=== PATIENT | female | born 1995 | race Two or more races ===

== ENCOUNTER 2020-06-03 17:07 | Inpatient (IN) | payer MEDICAID ==
[~2020-06-03] VITALS: Ht 154.9 cm; Wt 81.2 kg
[2020-06-03] MEDS ORDERED: MAGNESIUM HYDROXIDE SUSPENSION 30 ML UDCUP PO PRN (21:30)
[2020-06-03] MEDS ORDERED: TUBERCULIN, PURIFIED PROTEIN DERIVATIVE 5 TU/0.1 ML SYRINGE ID ONE (21:30)
[2020-06-03] MEDS ORDERED: GuaiFENesin/D-METHORPHAN [SUGAR-FREE] 200-20MG/10 ML SYRUP UDCUP PO PRN (21:30)
[2020-06-03] MEDS ORDERED: MAG HYDROX/AL HYDROX/SIMETH ES 30 ML SUSPENSION UDCUP PO PRN (21:30)
[2020-06-03] MEDS ORDERED: ACETAMINOPHEN 325 MG TABLET PO PRN (21:30)
[2020-06-03] MEDS ORDERED: HydrOXYzine PAMOATE 50 MG CAPSULE PO PRN (21:30)
[2020-06-03] MEDS ORDERED: PROMETHAZINE HCL 25 MG TABLET PO PRN (21:30)
[2020-06-03] MEDS ORDERED: LOPERAMIDE HCL 2 MG CAPSULE PO PRN (21:30)
[2020-06-03 22:14] VITALS: BP 141/84
[2020-06-03] MEDS: ZOLPIDEM TARTRATE 10 MG TABLET PO PRN (22:30)
[2020-06-04 00:49] VITALS: BP 128/76
[2020-06-04 07:54] LABS: BASOPHILS % (AUTO) 0.8 % (0.0-2.0); EOSINOPHILS % (AUTO) 2.4 % (1.0-6.0); LYMPHOCYTES # (AUTO) 2.5 K/uL (1.0-4.8); LYMPHOCYTES % (AUTO) 38.3 % (22.0-44.0); MEAN CORPUSCULAR HEMOGLOBIN 29.4 pg (26.0-34.0); MEAN CORPUSCULAR HGB CONC 34.2 G/dL (31.0-37.0); MEAN CORPUSCULAR VOLUME 86 fL (80-100); MONOCYTES # (AUTO) 0.6 K/uL (0.1-1.0); MONOCYTES % (AUTO) 8.6 % (2.0-9.0); NEUTROPHILS # (AUTO) 3.2 K/uL (1.8-7.7); NEUTROPHILS % (AUTO) 49.9 % (40.0-70.0); PLATELET COUNT (AUTO) 218 K/uL (150-450); RED BLOOD CELL COUNT(AUTO) 4.76 MIL/uL (4.00-5.20); RED CELL DISTRIBUTION WIDTH 12.8 % (11.5-14.5)
[2020-06-04 08:11] LABS: HEMOGLOBIN A1C 5.1 % (3.8-5.6)
[2020-06-04 08:29] LABS: ALANINE AMINOTRANSFERASE 96 U/L (12-78); ALBUMIN 3.3 g/dL (3.4-5.0); ALKALINE PHOSPHATASE 58 U/L (46-116); ANION GAP 6 mmol/L (8-16); ASPARTATE AMINOTRANSFERASE 40 U/L (15-37); BILIRUBIN,TOTAL 1.2 mg/dL (0.1-1.0); CALCIUM, TOTAL 8.6 mg/dL (8.8-10.5); CARBON DIOXIDE 29 mmol/L (22-29); CHLORIDE 105 mmol/L (98-107); CHOL/HDL RATIO 5.6 (3.9-5.7); CHOLESTEROL 141 mg/dL (131-200); CREATININE 0.69 mg/dL (0.60-1.30); FREE T4 (FREE THYROXINE) 1.24 ng/dL (0.76-1.46); GLOMERULAR FILTR. RATE CALC > 60 mL/min (>60); GLUCOSE,RANDOM 102 mg/dL (70-110); HCG,QUANTITATIVE 1 mIU/mL (0-6); HDL CHOLESTEROL 25 mg/dL (40-60); LDL CHOL (CALC.) 93 mg/dL (0-130); POTASSIUM 3.7 mmol/L (3.5-5.1); SODIUM SERUM 140 mmol/L (136-145); THYROID STIMULATING HORMONE 0.91 uIU/mL (0.36-3.74); TOTAL PROTEIN, SERUM 6.4 g/dL (6.4-8.2); TRIGLYCERIDES 114 mg/dL (15-150); UREA NITROGEN, BLOOD 9 mg/dL (7-18)
[2020-06-04 08:30] VITALS: BP 115/59
[2020-06-04] MEDS: FOLIC ACID 1 MG TABLET PO SCH (09:00)
[2020-06-04] MEDS: THIAMINE 100 MG TABLET PO SCH ×2 (09:00→17:23)
[2020-06-04] MEDS: NALTREXONE HCL 50 MG TABLET PO SCH (09:00)
[2020-06-04] MEDS: MULTIVITAMINS WITH MINERALS, THERAPEUTIC TABLET PO SCH (09:00)
[2020-06-04] MEDS: LORazepam 2 MG TABLET PO PRN (09:22)
[2020-06-04] MEDS: FLUoxetine HCL 20 MG CAPSULE PO SCH (09:24)
[2020-06-04 16:04] VITALS: BP 105/60
[2020-06-04] MEDS ORDERED: OLANZapine 5 MG RAPDIS TABLET PO SCH (21:00)
[2020-06-05 05:23] VITALS: BP 116/61
[2020-06-05 08:10] VITALS: BP 103/62
[2020-06-05] MEDS: NALTREXONE HCL 50 MG TABLET PO SCH (09:00)
[2020-06-05] MEDS: MULTIVITAMINS WITH MINERALS, THERAPEUTIC TABLET PO SCH (09:00)
[2020-06-05] MEDS: FOLIC ACID 1 MG TABLET PO SCH (09:00)
[2020-06-05] MEDS: THIAMINE 100 MG TABLET PO SCH ×2 (09:00→17:00)
[2020-06-05] MEDS: FLUoxetine HCL 20 MG CAPSULE PO SCH (09:27)
[2020-06-05 16:07] VITALS: BP 106/70
[2020-06-05] MEDS: OLANZapine 10 MG RAPDIS TABLET PO SCH ×2 (20:15→21:32)
[2020-06-06 00:53] VITALS: BP 102/72
[2020-06-06 08:10] VITALS: BP 105/61
[2020-06-06 08:24] LABS: AMPHET/METH SCREEN,URINE NEGATIVE (NEGATIVE); APPEARANCE,URINE TURBID (CLEAR); BARBITURATE SCREEN, URINE NEGATIVE (NEGATIVE); BENZODIAZEPINES SCREEN,URINE NEGATIVE (NEGATIVE); BILIRUBIN,URINE NEGATIVE (NEGATIVE); CANNABINOID SCREEN,URINE POSITIVE (NEGATIVE); COCAINE SCREEN,URINE NEGATIVE (NEGATIVE); GLUCOSE, URINE (UA) NEGATIVE (NEGATIVE); KETONES,URINE NEGATIVE (NEGATIVE); LEUKOCYTE ESTERASE ,URINE SMALL (NEGATIVE); METHADONE SCREEN, URINE NEGATIVE (NEGATIVE); NITRATE,URINE NEGATIVE (NEGATIVE); OPIATE SCREEN,URINE NEGATIVE (NEGATIVE); PROTEIN,URINE NEGATIVE (NEGATIVE); UROBILINOGEN,URINE 0.2 mg/dL (<=1.0)
[2020-06-06] MEDS: FLUoxetine HCL 20 MG CAPSULE PO SCH (08:27)
[2020-06-06 08:31] LABS: PHENCYCLIDINE SCREEN,URINE NEGATIVE (NEGATIVE)
[2020-06-06] MEDS: MULTIVITAMINS WITH MINERALS, THERAPEUTIC TABLET PO SCH (08:31)
[2020-06-06] MEDS: NALTREXONE HCL 50 MG TABLET PO SCH (08:31)
[2020-06-06] MEDS: FOLIC ACID 1 MG TABLET PO SCH (08:31)
[2020-06-06] MEDS: THIAMINE 100 MG TABLET PO SCH ×2 (08:31→15:55)
[2020-06-06 08:38] LABS: BACTERIA,URINE Many /HPF (None Seen); OCCULT BLOOD,URINE SMALL (NEGATIVE)
[2020-06-06 08:39] LABS: AMORPHOUS SEDIMENT,UR Moderate /LPF (None Seen); CALCIUM OXALATE CRYSTALS,UR Moderate /LPF (None Seen); SQUAMOUS EPITHELIAL CELL,UR Many /LPF (None Seen)
[2020-06-06 16:28] VITALS: BP 100/54
[2020-06-06] MEDS: LORazepam 2 MG TABLET PO PRN (18:39)
[2020-06-06] MEDS: OLANZapine 10 MG RAPDIS TABLET PO SCH (20:00)
[2020-06-07 05:40] VITALS: BP 110/60
[2020-06-07 08:14] VITALS: BP 119/74
[2020-06-07] MEDS: FOLIC ACID 1 MG TABLET PO SCH (09:03)
[2020-06-07] MEDS: MULTIVITAMINS WITH MINERALS, THERAPEUTIC TABLET PO SCH (09:04)
[2020-06-07] MEDS: THIAMINE 100 MG TABLET PO SCH ×2 (09:04→16:03)
[2020-06-07] MEDS: NALTREXONE HCL 50 MG TABLET PO SCH (09:04)
[2020-06-07] MEDS: FLUoxetine HCL 20 MG CAPSULE PO SCH (09:04)
[2020-06-07] MEDS: LORazepam 2 MG TABLET PO PRN ×2 (09:09→16:04)
[2020-06-07 16:15] VITALS: BP 111/71
[2020-06-07] MEDS: OLANZapine 10 MG RAPDIS TABLET PO SCH (20:37)
[2020-06-07] MEDS: ZOLPIDEM TARTRATE 10 MG TABLET PO PRN (21:12)
[2020-06-08 06:21] VITALS: BP 103/65
[2020-06-08] MEDS: THIAMINE 100 MG TABLET PO SCH ×2 (08:15→16:39)
[2020-06-08] MEDS: MULTIVITAMINS WITH MINERALS, THERAPEUTIC TABLET PO SCH (08:15)
[2020-06-08] MEDS: FOLIC ACID 1 MG TABLET PO SCH (08:15)
[2020-06-08] MEDS: FLUoxetine HCL 20 MG CAPSULE PO SCH (08:15)
[2020-06-08] MEDS: NALTREXONE HCL 50 MG TABLET PO SCH (08:15)
[2020-06-08 08:31] VITALS: BP 122/79
[2020-06-08] MEDS: OLANZapine 5 MG RAPDIS TABLET PO PRN (16:39)
[2020-06-08] MEDS: LORazepam 2 MG TABLET PO PRN (18:44)
[2020-06-08 19:14] VITALS: BP 128/91
[2020-06-08] MEDS: OLANZapine 10 MG RAPDIS TABLET PO SCH (20:07)
[2020-06-08] MEDS: ZOLPIDEM TARTRATE 10 MG TABLET PO PRN (20:07)
[2020-06-09 01:17] VITALS: BP 122/84
[2020-06-09 08:17] VITALS: BP 111/79
[2020-06-09] MEDS: FLUoxetine HCL 20 MG CAPSULE PO SCH (08:17)
[2020-06-09] MEDS: NALTREXONE HCL 50 MG TABLET PO SCH (08:17)
[2020-06-09] MEDS: MULTIVITAMINS WITH MINERALS, THERAPEUTIC TABLET PO SCH (08:17)
[2020-06-09] MEDS: THIAMINE 100 MG TABLET PO SCH ×2 (08:17→16:07)
[2020-06-09] MEDS: FOLIC ACID 1 MG TABLET PO SCH (08:17)
[2020-06-09] MEDS: LORazepam 2 MG TABLET PO PRN ×2 (13:01→17:13)
[2020-06-09 16:02] VITALS: BP 123/74
[2020-06-09] MEDS: OLANZapine 5 MG RAPDIS TABLET PO PRN (18:07)
[2020-06-09] MEDS: ZOLPIDEM TARTRATE 10 MG TABLET PO PRN (20:33)
[2020-06-09] MEDS: OLANZapine 10 MG RAPDIS TABLET PO SCH (20:33)
[2020-06-10 02:17] VITALS: BP 124/71
[2020-06-10 08:11] VITALS: BP 116/71
[2020-06-10 08:18] LABS: ALBUMIN 3.6 g/dL (3.4-5.0); BILIRUBIN,DIRECT 0.1 mg/dL (0.00-0.20); BILIRUBIN,TOTAL 0.9 mg/dL (0.1-1.0)
[2020-06-10] MEDS: THIAMINE 100 MG TABLET PO SCH ×2 (08:34→17:01)
[2020-06-10] MEDS: LORazepam 2 MG TABLET PO PRN ×2 (08:34→17:52)
[2020-06-10] MEDS: FLUoxetine HCL 20 MG CAPSULE PO SCH (08:34)
[2020-06-10] MEDS: MULTIVITAMINS WITH MINERALS, THERAPEUTIC TABLET PO SCH (08:35)
[2020-06-10] MEDS: NALTREXONE HCL 50 MG TABLET PO SCH (08:35)
[2020-06-10] MEDS: FOLIC ACID 1 MG TABLET PO SCH (08:35)
[2020-06-10] MEDS: OLANZapine 5 MG RAPDIS TABLET PO PRN (09:13)
[2020-06-10 16:07] VITALS: BP 112/79
[2020-06-10] MEDS: OLANZapine 10 MG RAPDIS TABLET PO SCH (20:04)
[2020-06-10] MEDS: ZOLPIDEM TARTRATE 10 MG TABLET PO PRN (20:06)
[2020-06-11 03:46] VITALS: BP 110/78
[2020-06-11] MEDS: ATOMOXETINE HCL 40 MG CAPSULE PO SCH (08:03)
[2020-06-11] MEDS: THIAMINE 100 MG TABLET PO SCH ×2 (08:03→16:48)
[2020-06-11] MEDS: FOLIC ACID 1 MG TABLET PO SCH (08:03)
[2020-06-11] MEDS: FLUoxetine HCL 20 MG CAPSULE PO SCH (08:03)
[2020-06-11] MEDS: MULTIVITAMINS WITH MINERALS, THERAPEUTIC TABLET PO SCH (08:03)
[2020-06-11] MEDS: NALTREXONE HCL 50 MG TABLET PO SCH (08:03)
[2020-06-11] MEDS: LORazepam 2 MG TABLET PO PRN ×3 (08:03→16:56)
[2020-06-11 08:08] VITALS: BP 140/83
[2020-06-11 16:10] VITALS: BP 120/66
[2020-06-11] MEDS ORDERED: NICOTINE POLACRILEX 2 MG LOZENGE PO PRN (17:45)
[2020-06-11] MEDS: OLANZapine 10 MG RAPDIS TABLET PO SCH (20:19)
[2020-06-11] MEDS: ZOLPIDEM TARTRATE 10 MG TABLET PO PRN (20:19)
[2020-06-12 06:35] VITALS: BP 109/74
[2020-06-12] MEDS ORDERED: ATOM40CA9 PO (07:51)
[2020-06-12] MEDS ORDERED: NALT50TA PO (07:51)
[2020-06-12] MEDS ORDERED: OLAN10TA22 PO (07:51)
[2020-06-12] MEDS ORDERED: FLUO-191 PO (07:51)
[2020-06-12] MEDS: NALTREXONE HCL 50 MG TABLET PO SCH (08:08)
[2020-06-12] MEDS: FLUoxetine HCL 20 MG CAPSULE PO SCH (08:08)
[2020-06-12] MEDS: FOLIC ACID 1 MG TABLET PO SCH (08:08)
[2020-06-12] MEDS: ATOMOXETINE HCL 40 MG CAPSULE PO SCH (08:08)
[2020-06-12] MEDS: THIAMINE 100 MG TABLET PO SCH (08:08)
[2020-06-12] MEDS: MULTIVITAMINS WITH MINERALS, THERAPEUTIC TABLET PO SCH (08:08)
[2020-06-12] MEDS: LORazepam 2 MG TABLET PO PRN (08:13)
[2020-06-12 08:20] VITALS: BP 117/71
[2020-06-13] MEDS ORDERED: FLUO-191 PO (09:07)
[2020-06-13] MEDS ORDERED: OLAN10TA3 PO (09:07)
[2020-06-13] MEDS ORDERED: NALT50TA6 PO (09:07)
== END 2020-06-12 13:10 | disposition home or self-care (01) | DRG 750 ==
LOC: B3A 21:15
PROVIDERS: ADMIT Psychiatry & Neurology Psychiatry; ATTEND Psychiatry & Neurology Psychiatry
DX: F25.9 Schizoaffective disorder, unspecified (principal); F15.90 Other stimulant use, unspecified, uncomplicated; F12.10 Cannabis abuse, uncomplicated; F17.210 Nicotine dependence, cigarettes, uncomplicated; G47.00 Insomnia, unspecified; Z59.0 Homelessness; Z91.19 Patient's noncompliance with other medical treatment and regimen
CPT/HCPCS: 80074; 80307; 83036; 84439; 84443; 86592; 87081; 87086

== ENCOUNTER 2020-06-12 22:33 | Inpatient (IN) | payer MEDICAID ==
[~2020-06-12] VITALS: Ht 154.9 cm; Wt 81.6 kg
[~2020-06-12 22:33] MED LIST: FLUO-191 PO; NALT50TA PO; OLAN10TA22 PO
[2020-06-13] MEDS ORDERED: OLANZapine 5 MG RAPDIS TABLET PO PRN ×2 (01:45→11:45)
[2020-06-13 02:30] VITALS: BP 123/80
[2020-06-13] MEDS: LORazepam 2 MG TABLET PO PRN ×4 (03:26→20:08)
[2020-06-13 08:30] VITALS: BP 106/60
[2020-06-13 08:42] LABS: CHOL/HDL RATIO 6.4 (3.9-5.7); CHOLESTEROL 167 mg/dL (131-200); HDL CHOLESTEROL 26 mg/dL (40-60); LDL CHOL (CALC.) 87 mg/dL (0-130); TRIGLYCERIDES 272 mg/dL (15-150)
[2020-06-13 09:07] LABS: BILIRUBIN,URINE NEGATIVE (NEGATIVE); GLUCOSE, URINE (UA) NEGATIVE (NEGATIVE); KETONES,URINE NEGATIVE (NEGATIVE); LEUKOCYTE ESTERASE ,URINE NEGATIVE (NEGATIVE); NITRATE,URINE NEGATIVE (NEGATIVE); OCCULT BLOOD,URINE LARGE (NEGATIVE); PROTEIN,URINE NEGATIVE (NEGATIVE); UROBILINOGEN,URINE 0.2 mg/dL (<=1.0)
[2020-06-13] MEDS ORDERED: OLAN10TA3 PO (09:07)
[2020-06-13] MEDS ORDERED: NALT50TA6 PO (09:07)
[2020-06-13] MEDS ORDERED: FLUO-191 PO (09:07)
[2020-06-13 09:09] LABS: APPEARANCE,URINE SLIGHTLY CLOUDY (CLEAR)
[2020-06-13 09:10] LABS: ALANINE AMINOTRANSFERASE 75 U/L (12-78); ALBUMIN 3.6 g/dL (3.4-5.0); ALKALINE PHOSPHATASE 76 U/L (46-116); ANION GAP 7 mmol/L (8-16); ASPARTATE AMINOTRANSFERASE 34 U/L (15-37); BILIRUBIN,TOTAL 0.8 mg/dL (0.1-1.0); CALCIUM, TOTAL 8.9 mg/dL (8.8-10.5); CARBON DIOXIDE 28 mmol/L (22-29); CHLORIDE 105 mmol/L (98-107); CREATININE 0.72 mg/dL (0.60-1.30); FREE T4 (FREE THYROXINE) 1.09 ng/dL (0.76-1.46); GLOMERULAR FILTR. RATE CALC > 60 mL/min (>60); GLUCOSE,RANDOM 76 mg/dL (70-110); HCG,QUANTITATIVE < 1 mIU/mL (0-6); POTASSIUM 3.8 mmol/L (3.5-5.1); SODIUM SERUM 140 mmol/L (136-145); THYROID STIMULATING HORMONE 1.66 uIU/mL (0.36-3.74); TOTAL PROTEIN, SERUM 6.6 g/dL (6.4-8.2); UREA NITROGEN, BLOOD 12 mg/dL (7-18)
[2020-06-13 09:18] LABS: AMPHET/METH SCREEN,URINE NEGATIVE (NEGATIVE); BARBITURATE SCREEN, URINE NEGATIVE (NEGATIVE); BENZODIAZEPINES SCREEN,URINE NEGATIVE (NEGATIVE); CANNABINOID SCREEN,URINE POSITIVE (NEGATIVE); COCAINE SCREEN,URINE NEGATIVE (NEGATIVE); METHADONE SCREEN, URINE NEGATIVE (NEGATIVE); OPIATE SCREEN,URINE NEGATIVE (NEGATIVE); PHENCYCLIDINE SCREEN,URINE NEGATIVE (NEGATIVE)
[2020-06-13 09:26] LABS: WBC,URINE None Seen /HPF (0-5)
[2020-06-13 09:27] LABS: BACTERIA,URINE Few /HPF (None Seen); CALCIUM OXALATE CRYSTALS,UR Few /LPF (None Seen); SQUAMOUS EPITHELIAL CELL,UR Many /LPF (None Seen)
[2020-06-13] MEDS ORDERED: MAGNESIUM HYDROXIDE SUSPENSION 30 ML UDCUP PO PRN (11:45)
[2020-06-13] MEDS ORDERED: PROMETHAZINE HCL 25 MG TABLET PO PRN (11:45)
[2020-06-13] MEDS ORDERED: MAG HYDROX/AL HYDROX/SIMETH ES 30 ML SUSPENSION UDCUP PO PRN (11:45)
[2020-06-13] MEDS ORDERED: LOPERAMIDE HCL 2 MG CAPSULE PO PRN (11:45)
[2020-06-13] MEDS ORDERED: GuaiFENesin/D-METHORPHAN [SUGAR-FREE] 200-20MG/10 ML SYRUP UDCUP PO PRN (11:45)
[2020-06-13] MEDS ORDERED: ACETAMINOPHEN 325 MG TABLET PO PRN (11:45)
[2020-06-13] MEDS ORDERED: HydrOXYzine PAMOATE 50 MG CAPSULE PO PRN (11:45)
[2020-06-13 16:04] VITALS: BP 118/71
[2020-06-13] MEDS: THIAMINE 100 MG TABLET PO SCH (16:11)
[2020-06-13] MEDS: OLANZapine 10 MG RAPDIS TABLET PO SCH (20:08)
[2020-06-13] MEDS: ZOLPIDEM TARTRATE 10 MG TABLET PO PRN (20:08)
[2020-06-14 00:43] VITALS: BP 110/72
[2020-06-14] MEDS: FLUoxetine HCL 20 MG CAPSULE PO SCH (08:08)
[2020-06-14] MEDS: THIAMINE 100 MG TABLET PO SCH ×2 (08:08→16:30)
[2020-06-14] MEDS: NALTREXONE HCL 50 MG TABLET PO SCH (08:08)
[2020-06-14] MEDS: MULTIVITAMINS WITH MINERALS, THERAPEUTIC TABLET PO SCH (08:08)
[2020-06-14] MEDS: FOLIC ACID 1 MG TABLET PO SCH (08:08)
[2020-06-14] MEDS ORDERED: BuPROPion HCL XL 150 MG ER TABLET PO SCH (09:00)
[2020-06-14 11:09] VITALS: BP 127/64
[2020-06-14] MEDS: LORazepam 2 MG TABLET PO PRN ×2 (12:18→17:00)
[2020-06-14 16:14] VITALS: BP 108/67
[2020-06-14] MEDS: NICOTINE POLACRILEX 2 MG LOZENGE PO PRN (19:30)
[2020-06-14] MEDS: OLANZapine 10 MG RAPDIS TABLET PO SCH (20:13)
[2020-06-14] MEDS: MIRTAZAPINE 15 MG TABLET PO SCH (20:13)
[2020-06-14] MEDS: ZOLPIDEM TARTRATE 10 MG TABLET PO PRN (20:13)
[2020-06-15 00:06] VITALS: BP 112/62
[2020-06-15 08:07] VITALS: BP 115/74
[2020-06-15] MEDS: THIAMINE 100 MG TABLET PO SCH ×2 (09:48→16:30)
[2020-06-15] MEDS: NALTREXONE HCL 50 MG TABLET PO SCH (09:48)
[2020-06-15] MEDS: FOLIC ACID 1 MG TABLET PO SCH (09:48)
[2020-06-15] MEDS: FLUoxetine HCL 20 MG CAPSULE PO SCH (09:48)
[2020-06-15] MEDS: MULTIVITAMINS WITH MINERALS, THERAPEUTIC TABLET PO SCH (09:48)
[2020-06-15] MEDS: BuPROPion HCL XL 150 MG ER TABLET PO SCH (09:48)
[2020-06-15] MEDS: LORazepam 2 MG TABLET PO PRN ×2 (12:18→16:30)
[2020-06-15] MEDS: NICOTINE POLACRILEX 2 MG LOZENGE PO PRN ×2 (12:36→15:40)
[2020-06-15 16:24] VITALS: BP 110/69
[2020-06-15] MEDS: OLANZapine 10 MG RAPDIS TABLET PO SCH (20:12)
[2020-06-15] MEDS: MIRTAZAPINE 15 MG TABLET PO SCH (20:12)
[2020-06-16 05:07] VITALS: BP 104/68
[2020-06-16] MEDS: NALTREXONE HCL 50 MG TABLET PO SCH (08:21)
[2020-06-16] MEDS: FOLIC ACID 1 MG TABLET PO SCH (08:21)
[2020-06-16] MEDS: THIAMINE 100 MG TABLET PO SCH ×2 (08:21→16:10)
[2020-06-16] MEDS: BuPROPion HCL XL 150 MG ER TABLET PO SCH (08:21)
[2020-06-16] MEDS: MULTIVITAMINS WITH MINERALS, THERAPEUTIC TABLET PO SCH (08:21)
[2020-06-16] MEDS: FLUoxetine HCL 20 MG CAPSULE PO SCH (08:22)
[2020-06-16] MEDS: NICOTINE POLACRILEX 2 MG LOZENGE PO PRN ×2 (08:23→17:14)
[2020-06-16 08:34] VITALS: BP 121/72
[2020-06-16] MEDS: LORazepam 2 MG TABLET PO PRN ×2 (10:11→19:02)
[2020-06-16 16:12] VITALS: BP 114/76
[2020-06-16] MEDS: OLANZapine 10 MG RAPDIS TABLET PO SCH (20:07)
[2020-06-16] MEDS: MIRTAZAPINE 15 MG TABLET PO SCH (20:08)
[2020-06-17 04:10] VITALS: BP 110/68
[2020-06-17 08:22] VITALS: BP 93/62
[2020-06-17] MEDS: FOLIC ACID 1 MG TABLET PO SCH (08:43)
[2020-06-17] MEDS: BuPROPion HCL XL 150 MG ER TABLET PO SCH (08:43)
[2020-06-17] MEDS: FLUoxetine HCL 20 MG CAPSULE PO SCH (08:43)
[2020-06-17] MEDS: NALTREXONE HCL 50 MG TABLET PO SCH (08:43)
[2020-06-17] MEDS: MULTIVITAMINS WITH MINERALS, THERAPEUTIC TABLET PO SCH (08:43)
[2020-06-17] MEDS: THIAMINE 100 MG TABLET PO SCH ×2 (08:44→16:30)
[2020-06-17] MEDS: LORazepam 2 MG TABLET PO PRN ×2 (11:56→16:30)
[2020-06-17] MEDS: NICOTINE POLACRILEX 2 MG LOZENGE PO PRN ×2 (11:56→17:36)
[2020-06-17] MEDS ORDERED: PALIPERIDONE PALMITATE 234 MG/1.5 ML SYRINGE IM ONE (16:15)
[2020-06-17 16:25] VITALS: BP 113/63
[2020-06-17] MEDS: DIVALPROEX SODIUM 500 MG ER TABLET PO SCH (20:27)
[2020-06-17] MEDS: ZOLPIDEM TARTRATE 10 MG TABLET PO PRN (20:28)
[2020-06-17] MEDS: MIRTAZAPINE 15 MG TABLET PO SCH (20:28)
[2020-06-17] MEDS: OLANZapine 10 MG RAPDIS TABLET PO SCH (20:28)
[2020-06-18 06:21] VITALS: BP 123/73
[2020-06-18 08:21] VITALS: BP 11/66
[2020-06-18] MEDS: FLUoxetine HCL 20 MG CAPSULE PO SCH (08:25)
[2020-06-18] MEDS: MULTIVITAMINS WITH MINERALS, THERAPEUTIC TABLET PO SCH (08:25)
[2020-06-18] MEDS: THIAMINE 100 MG TABLET PO SCH ×2 (08:25→16:19)
[2020-06-18] MEDS: BuPROPion HCL XL 150 MG ER TABLET PO SCH (08:25)
[2020-06-18] MEDS: FOLIC ACID 1 MG TABLET PO SCH (08:25)
[2020-06-18] MEDS: NALTREXONE HCL 50 MG TABLET PO SCH (08:26)
[2020-06-18] MEDS: NICOTINE POLACRILEX 2 MG LOZENGE PO PRN ×2 (08:26→17:26)
[2020-06-18 16:02] VITALS: BP 142/74
[2020-06-18] MEDS: LORazepam 2 MG TABLET PO PRN (16:20)
[2020-06-18] MEDS: DIVALPROEX SODIUM 500 MG ER TABLET PO SCH (20:17)
[2020-06-18] MEDS: MIRTAZAPINE 15 MG TABLET PO SCH (20:18)
[2020-06-18] MEDS: OLANZapine 10 MG RAPDIS TABLET PO SCH (20:18)
[2020-06-18] MEDS: ZOLPIDEM TARTRATE 10 MG TABLET PO PRN (20:53)
[2020-06-19 01:08] VITALS: BP 104/62
[2020-06-19] MEDS: FOLIC ACID 1 MG TABLET PO SCH (08:23)
[2020-06-19] MEDS: MULTIVITAMINS WITH MINERALS, THERAPEUTIC TABLET PO SCH (08:23)
[2020-06-19] MEDS: BuPROPion HCL XL 150 MG ER TABLET PO SCH (08:23)
[2020-06-19] MEDS: NALTREXONE HCL 50 MG TABLET PO SCH (08:23)
[2020-06-19] MEDS: FLUoxetine HCL 20 MG CAPSULE PO SCH (08:23)
[2020-06-19] MEDS: THIAMINE 100 MG TABLET PO SCH (08:23)
[2020-06-19 08:32] VITALS: BP 112/78
[2020-06-19] MEDS ORDERED: DIVA-80 PO (09:45)
[2020-06-19] MEDS ORDERED: MIRT-89 PO (09:45)
[2020-06-19] MEDS ORDERED: OLAN10TA6 PO (09:45)
[2020-06-19] MEDS ORDERED: NALT50TA6 PO (09:45)
[2020-06-19] MEDS ORDERED: FLUO-191 PO (09:45)
[2020-06-19] MEDS ORDERED: BUPR-93 PO (09:45)
[2020-06-22] MEDS ORDERED: PALIPERIDONE PALMITATE 156 MG/ML SYRINGE IM ONE (09:00)
== END 2020-06-19 10:45 | disposition home or self-care (01) | DRG 750 ==
LOC: B2S 06-13 01:15
PROVIDERS: ADMIT Psychiatry & Neurology Psychiatry; ATTEND Psychiatry & Neurology Psychiatry
DX: F25.9 Schizoaffective disorder, unspecified (principal); F41.0 Panic disorder [episodic paroxysmal anxiety]; F41.8 Other specified anxiety disorders; Z79.899 Other long term (current) drug therapy; R45.851 Suicidal ideations; Z87.891 Personal history of nicotine dependence; F19.20 Other psychoactive substance dependence, uncomplicated
CPT/HCPCS: 80307; 83036; 84439; 84443; 87081; 87426

== ENCOUNTER 2020-11-21 15:04 | Emergency (ER) | payer MEDICAID ==
[~2020-11-21] VITALS: Ht 154.9 cm; Wt 84.5 kg
[~2020-11-21 15:04] MED LIST changes: +BUPR-93 PO; +DIVA-80 PO; +MIRT-89 PO; -NALT50TA PO; +NALT50TA6 PO; -OLAN10TA22 PO; +OLAN10TA6 PO
[2020-11-21 15:05] VITALS: BP 101/64
[2020-11-21 16:34] LABS: COVID AG,FIA SOURCE NASAL SWAB
== END 2020-11-21 16:23 | disposition home or self-care (01) ==
LOC: EMS 15:04
DX: Z20.822 Contact with and (suspected) exposure to COVID-19 (principal); F17.210 Nicotine dependence, cigarettes, uncomplicated; F12.90 Cannabis use, unspecified, uncomplicated; F20.9 Schizophrenia, unspecified
CPT/HCPCS: 87426; 99283; C9803

== ENCOUNTER 2020-11-21 18:40 | Inpatient (IN) | payer MEDICAID ==
[~2020-11-21] VITALS: Ht 154.9 cm; Wt 85.9 kg
[2020-11-21] MEDS ORDERED: GuaiFENesin/D-METHORPHAN [SUGAR-FREE] 200-20MG/10 ML SYRUP UDCUP PO PRN (20:00)
[2020-11-21] MEDS ORDERED: MAGNESIUM HYDROXIDE SUSPENSION 30 ML UDCUP PO PRN (20:00)
[2020-11-21] MEDS ORDERED: LOPERAMIDE HCL 2 MG CAPSULE PO PRN (20:00)
[2020-11-21] MEDS ORDERED: HydrOXYzine PAMOATE 50 MG CAPSULE PO PRN (20:00)
[2020-11-21] MEDS ORDERED: MAG HYDROX/AL HYDROX/SIMETH ES 30 ML SUSPENSION UDCUP PO PRN (20:00)
[2020-11-21] MEDS ORDERED: OLANZapine 5 MG RAPDIS TABLET PO PRN (20:00)
[2020-11-21] MEDS ORDERED: ZOLPIDEM TARTRATE 10 MG TABLET PO PRN (20:00)
[2020-11-21] MEDS ORDERED: ACETAMINOPHEN 325 MG TABLET PO PRN (20:00)
[2020-11-21] MEDS ORDERED: PROMETHAZINE HCL 25 MG TABLET PO PRN (20:00)
[2020-11-21 20:08] VITALS: BP 139/71
[2020-11-21] MEDS: DIVALPROEX SODIUM 500 MG ER TABLET PO SCH (20:37)
[2020-11-21] MEDS: MELATONIN 5 MG TABLET PO SCH (20:42)
[2020-11-21] MEDS: LORazepam 2 MG TABLET PO PRN (20:43)
[2020-11-21] MEDS ORDERED: INFLUENZA VIRUS VACCINE QVS 2020-21 (6MO+)/PF 60 MCG/0.5 ML SYRINGE IM ONE (20:45)
[2020-11-21] MEDS ORDERED: OLANZapine 5 MG RAPDIS TABLET PO SCH (21:00)
[2020-11-22 08:04] VITALS: BP 101/60
[2020-11-22] MEDS: OMEGA-3/DHA/EPA/FISH OIL 1,000 MG CAPSULE PO SCH (08:17)
[2020-11-22] MEDS: NALTREXONE HCL 50 MG TABLET PO SCH (08:17)
[2020-11-22] MEDS: THIAMINE 100 MG TABLET PO SCH ×2 (08:17→16:24)
[2020-11-22] MEDS: BuPROPion HCL XL 150 MG ER TABLET PO SCH (08:17)
[2020-11-22] MEDS: MULTIVITAMINS WITH MINERALS, THERAPEUTIC TABLET PO SCH (08:17)
[2020-11-22] MEDS: FOLIC ACID 1 MG TABLET PO SCH (08:17)
[2020-11-22] MEDS ORDERED: FLUoxetine HCL 20 MG CAPSULE PO SCH (09:00)
[2020-11-22] MEDS ORDERED: PALIPERIDONE PALMITATE 234 MG/1.5 ML SYRINGE IM ONE (13:45)
[2020-11-22 16:02] VITALS: BP 105/65
[2020-11-22] MEDS: MELATONIN 5 MG TABLET PO SCH (20:31)
[2020-11-22] MEDS: DIVALPROEX SODIUM 500 MG ER TABLET PO SCH (20:31)
[2020-11-22] MEDS: OLANZapine 10 MG RAPDIS TABLET PO SCH (20:34)
[2020-11-23 06:17] VITALS: BP 114/71
[2020-11-23 08:28] VITALS: BP 100/63
[2020-11-23] MEDS: OMEGA-3/DHA/EPA/FISH OIL 1,000 MG CAPSULE PO SCH (09:41)
[2020-11-23] MEDS: BuPROPion HCL XL 150 MG ER TABLET PO SCH (09:41)
[2020-11-23] MEDS: NALTREXONE HCL 50 MG TABLET PO SCH (09:41)
[2020-11-23] MEDS: THIAMINE 100 MG TABLET PO SCH ×2 (09:43→16:19)
[2020-11-23] MEDS: FLUoxetine HCL 20 MG CAPSULE PO SCH (09:43)
[2020-11-23] MEDS: MULTIVITAMINS WITH MINERALS, THERAPEUTIC TABLET PO SCH (09:44)
[2020-11-23] MEDS: FOLIC ACID 1 MG TABLET PO SCH (09:44)
[2020-11-23 16:05] VITALS: BP 114/70
[2020-11-23] MEDS: LORazepam 2 MG TABLET PO PRN (16:19)
[2020-11-23] MEDS: OLANZapine 10 MG RAPDIS TABLET PO SCH (20:20)
[2020-11-23] MEDS: MELATONIN 5 MG TABLET PO SCH (20:20)
[2020-11-23] MEDS: DIVALPROEX SODIUM 500 MG ER TABLET PO SCH (20:21)
[2020-11-24 03:35] VITALS: BP 102/61
[2020-11-24] MEDS: OMEGA-3/DHA/EPA/FISH OIL 1,000 MG CAPSULE PO SCH (08:07)
[2020-11-24] MEDS: FOLIC ACID 1 MG TABLET PO SCH (08:07)
[2020-11-24] MEDS: NALTREXONE HCL 50 MG TABLET PO SCH (08:07)
[2020-11-24] MEDS: BuPROPion HCL XL 150 MG ER TABLET PO SCH (08:07)
[2020-11-24] MEDS: FLUoxetine HCL 20 MG CAPSULE PO SCH (08:07)
[2020-11-24] MEDS: THIAMINE 100 MG TABLET PO SCH ×2 (08:07→16:28)
[2020-11-24] MEDS: MULTIVITAMINS WITH MINERALS, THERAPEUTIC TABLET PO SCH (08:07)
[2020-11-24 08:16] VITALS: BP 101/63
[2020-11-24 10:00] VITALS: BP 110/68
[2020-11-24] MEDS: LORazepam 2 MG TABLET PO PRN (10:00)
[2020-11-24 16:04] VITALS: BP 130/86
[2020-11-24] MEDS: MELATONIN 5 MG TABLET PO SCH (20:08)
[2020-11-24] MEDS: DIVALPROEX SODIUM 500 MG ER TABLET PO SCH (20:09)
[2020-11-24] MEDS: OLANZapine 10 MG RAPDIS TABLET PO SCH (20:09)
[2020-11-25 02:09] VITALS: BP 122/82
[2020-11-25 07:48] VITALS: BP 105/67
[2020-11-25] MEDS: FOLIC ACID 1 MG TABLET PO SCH (08:22)
[2020-11-25] MEDS: NALTREXONE HCL 50 MG TABLET PO SCH (08:22)
[2020-11-25] MEDS: OMEGA-3/DHA/EPA/FISH OIL 1,000 MG CAPSULE PO SCH (08:22)
[2020-11-25] MEDS: MULTIVITAMINS WITH MINERALS, THERAPEUTIC TABLET PO SCH (08:22)
[2020-11-25] MEDS: FLUoxetine HCL 20 MG CAPSULE PO SCH (08:22)
[2020-11-25] MEDS: THIAMINE 100 MG TABLET PO SCH ×2 (08:22→16:06)
[2020-11-25] MEDS: BuPROPion HCL XL 150 MG ER TABLET PO SCH (08:22)
[2020-11-25] MEDS: LORazepam 2 MG TABLET PO PRN (08:26)
[2020-11-25 08:38] VITALS: BP 105/67
[2020-11-25 16:31] VITALS: BP 129/83
[2020-11-25] MEDS: OLANZapine 10 MG RAPDIS TABLET PO SCH (20:22)
[2020-11-25] MEDS: MELATONIN 5 MG TABLET PO SCH (20:22)
[2020-11-25] MEDS: DIVALPROEX SODIUM 500 MG ER TABLET PO SCH (20:22)
[2020-11-26 00:46] VITALS: BP 120/80
[2020-11-26] MEDS: THIAMINE 100 MG TABLET PO SCH (08:11)
[2020-11-26] MEDS: MULTIVITAMINS WITH MINERALS, THERAPEUTIC TABLET PO SCH (08:11)
[2020-11-26] MEDS: NALTREXONE HCL 50 MG TABLET PO SCH (08:11)
[2020-11-26] MEDS: FLUoxetine HCL 20 MG CAPSULE PO SCH (08:11)
[2020-11-26] MEDS: FOLIC ACID 1 MG TABLET PO SCH (08:11)
[2020-11-26] MEDS: OMEGA-3/DHA/EPA/FISH OIL 1,000 MG CAPSULE PO SCH (08:11)
[2020-11-26] MEDS: LORazepam 2 MG TABLET PO PRN (08:12)
[2020-11-26 08:15] VITALS: BP 140/90
[2020-11-26] MEDS ORDERED: BuPROPion HCL XL 150 MG ER TABLET PO SCH (09:00)
[2020-11-26] MEDS ORDERED: PALIPERIDONE PALMITATE 156 MG/ML SYRINGE IM ONE (09:00)
[2020-11-26 09:28] LABS: BASOPHILS % (AUTO) 0.8 % (0.0-2.0); EOSINOPHILS % (AUTO) 2.1 % (1.0-6.0); HEMATOCRIT 42.4 % (36-46); HEMOGLOBIN 14.4 g/dL (12.0-16.0); LYMPHOCYTES # (AUTO) 2.8 K/uL (1.0-4.8); LYMPHOCYTES % (AUTO) 42.7 % (22.0-44.0); MEAN CORPUSCULAR HEMOGLOBIN 30.1 pg (26.0-34.0); MEAN CORPUSCULAR VOLUME 88 fL (80-100); MONOCYTES # (AUTO) 0.5 K/uL (0.1-1.0); MONOCYTES % (AUTO) 7.4 % (2.0-9.0); NEUTROPHILS # (AUTO) 3.1 K/uL (1.8-7.7); PLATELET COUNT (AUTO) 228 K/uL (150-450)
[2020-11-26 09:42] LABS: HEMOGLOBIN A1C 4.8 % (3.8-5.6)
[2020-11-26 10:10] LABS: ALANINE AMINOTRANSFERASE 43 U/L (12-78); ALBUMIN 3.4 g/dL (3.4-5.0); ALKALINE PHOSPHATASE 59 U/L (46-116); ANION GAP 12 mmol/L (8-16); ASPARTATE AMINOTRANSFERASE 15 U/L (15-37); BILIRUBIN,TOTAL 0.8 mg/dL (0.1-1.0); CALCIUM, TOTAL 9.3 mg/dL (8.8-10.5); CARBON DIOXIDE 25 mmol/L (22-29); CHLORIDE 105 mmol/L (98-107); CHOL/HDL RATIO 6.9 (3.9-5.7); CHOLESTEROL 179 mg/dL (131-200); CREATININE 0.63 mg/dL (0.60-1.30); FREE T4 (FREE THYROXINE) 1.05 ng/dL (0.76-1.46); GLOMERULAR FILTR. RATE CALC > 60 mL/min (>60); GLUCOSE,RANDOM 72 mg/dL (70-110); HDL CHOLESTEROL 26 mg/dL (40-60); LDL CHOL (CALC.) 99 mg/dL (0-130); POTASSIUM 3.6 mmol/L (3.5-5.1); SODIUM SERUM 142 mmol/L (136-145); THYROID STIMULATING HORMONE 4.06 uIU/mL (0.36-3.74); TRIGLYCERIDES 271 mg/dL (15-150); UREA NITROGEN, BLOOD 12 mg/dL (7-18); VALPROIC ACID 113 mcg/mL (50-100)
[2020-11-26] MEDS ORDERED: OLAN10TA22 PO (11:48)
[2020-11-26] MEDS ORDERED: FLUO-191 PO ×2 (11:48→12:36)
[2020-11-26] MEDS ORDERED: BUPR-48 PO (11:48)
[2020-11-26] MEDS ORDERED: OMEG-135 PO (11:48)
[2020-11-26] MEDS ORDERED: NALT50TA PO (11:48)
[2020-11-26] MEDS ORDERED: DIVA-80 PO (11:48)
[2020-11-26] MEDS ORDERED: MELA5TAB3 PO ×2 (11:48→12:36)
[2020-11-26] MEDS ORDERED: OLAN10TA3 PO (12:34)
[2020-11-26] MEDS ORDERED: OMEG1CAP45 PO (12:47)
== END 2020-11-26 14:10 | disposition home or self-care (01) | DRG 750 ==
LOC: B3A 19:07
PROVIDERS: ADMIT Psychiatry & Neurology Psychiatry; ATTEND Psychiatry & Neurology Psychiatry
DX: F25.9 Schizoaffective disorder, unspecified (principal); Z55.9 Problems related to education and literacy, unspecified; Z59.9 Problem related to housing and economic circumstances, unspecified; Z65.3 Problems related to other legal circumstances; F12.90 Cannabis use, unspecified, uncomplicated; Z20.822 Contact with and (suspected) exposure to COVID-19
CPT/HCPCS: 83036; 84439; 84443; 86592; 87081; A9575

== ENCOUNTER 2021-11-03 22:47 | Emergency (ER) | payer MEDICAID ==
[~2021-11-03] VITALS: Ht 157.5 cm; Wt 63.6 kg
[~2021-11-03 22:47] MED LIST changes: +BUPR-49 PO; +MELA5TAB40 PO; -MIRT-89 PO; +NALT50TA PO; +OLAN10TA22 PO; -OLAN10TA6 PO; +OLAN10TA74 PO; +OMEG-135 PO; +OMEG1CAP45 PO
[2021-11-03 23:43] VITALS: BP 121/73
== END 2021-11-04 00:09 | disposition home or self-care (01) ==
LOC: EMS 22:50
DX: T74.21XA Adult sexual abuse, confirmed, initial encounter (principal); F20.9 Schizophrenia, unspecified; F17.210 Nicotine dependence, cigarettes, uncomplicated
CPT/HCPCS: 99283; Z7502